=== PATIENT | female | born 1960 | race Caucasian/White ===

== ENCOUNTER 2016-11-20 07:20 | Day surgery (SDC) | payer OTHER ==
[~2016-11-20 07:20] MED LIST: FENTANYL 250 MCG/5 ML AMP IV PRN; LACTATED RINGERS 1,000 ML IV SCH; LIDOCAINE Viscous 2% 15 ML UDCUP PO PRN; MIDAZOLAM HCL 5 MG/5 ML VIAL IV PRN
[2016-11-20] MEDS ORDERED: IV START KIT ONE (07:52)
[2016-11-20] MEDS ORDERED: LACTATED RINGERS 1,000 ML ONE (07:52)
[2016-11-20] MEDS ORDERED: FENTANYL 100 MCG/2 ML VIAL ONE (08:14)
[2016-11-20] MEDS ORDERED: LIDOCAINE Viscous 2% 15 ML UDCUP ONE (08:14)
[2016-11-20] MEDS ORDERED: MIDAZOLAM HCL 5 MG/5 ML VIAL ONE (08:14)
[2016-11-20 14:08] LABS: HELICOBACTER PYLORII DETECTION NEGATIVE (NEGATIVE)
--- NOTE | 2016-11-24 09:48 | SURGPATH ---
[facility] [address] [place] [id number] Patient Name: SABRINA CARRINGTON MR#: [id number] : 1960 Gender: F Specimen #: [id number] Collected: 11/20/2016 Received: 11/23/2016 Reported: 11/24/2016 Submitting Phys: JADEN ZACARIAS [facility] Clinical History / Pre-Operative Diagnosis: History of Leon's esophagus, GERD, rule out gastritis, esophagitis, Leon's Specimen Source / Surgical Procedure Performed: #1 stomach antrum biopsy, #2 esophagus biopsy 36 cm Interpretation: 1. STOMACH ANTRUM, BIOPSY: - NO PATHOLOGIC ABNORMALITIES 2. ESOPHAGEAL BIOPSY AT 36 CM, - ESOPHAGEAL MUCOSA EXHIBITING NO PATHOLOGIC ABNORMALITIES Electronically Signed Out Peyman Ling M.D. Gross Description: 1. The specimen is received in formalin labeled with the patient's name and "stomach antrum". The specimen consists of two fragments of walter soft tissue each is 0.2-0.4 cm in greatest dimension. Submitted in toto in one cassette 2. The specimen is received in formalin labeled with the patient's name and "esophagus 36 cm". The specimen consists of a single fragment of walter soft tissue, 0.5 cm in greatest dimension. Submitted in toto in one cassette URIEL Dubon Microscopic Description: 1. The sections show fragments of gastric mucosa exhibiting a normal architectural pattern. There are no inflammatory or neoplastic features and there are no Helicobacter-like organisms identified. 2. The sections show a small fragment of squamous mucosa exhibiting a normal architectural pattern. There are no inflammatory or neoplastic features. Glandular mucosa is not present within the biopsy for evaluation. 1: 77297 2: 94160 K21.9
== END 2016-11-20 09:42 | disposition home or self-care (01) ==
LOC: SDC 07:20
PROVIDERS: ATTEND Internal Medicine Gastroenterology
PROC: 0DB58ZX Excision of Esophagus, Via Natural or Artificial Opening Endoscopic, Diagnostic (ICD-10-PCS; principal; 2016-11-20)
PROC: 0DB68ZX Excision of Stomach, Via Natural or Artificial Opening Endoscopic, Diagnostic (ICD-10-PCS; 2016-11-20)
DX: K29.70 Gastritis, unspecified, without bleeding (principal); Z87.891 Personal history of nicotine dependence
CPT/HCPCS: 87081; 43239; J3010; J2250; A9270; J7120